=== PATIENT | female | born 1950 | race Caucasian/White ===

== ENCOUNTER 2019-03-05 11:57 | Day surgery (SDC) | payer OTHER ==
[2019-01-14 17:00] VITALS: BMI 27.8
[2019-03-05] MEDS ORDERED: PROPOFOL 20 ML ONE ×2 (13:02)
[2019-03-05] MEDS ORDERED: ceFAZolin SODIUM 1 GM VIAL ONE (13:09)
[2019-03-05] MEDS ORDERED: LIDOCAINE HCL/PF 2% SDV 5ML VIAL ONE (13:09)
[2019-03-05] MEDS ORDERED: SODIUM CHLORIDE 0.9% P/F 10 ML VIAL IJ ONE (13:09)
[2019-03-05] MEDS ORDERED: ceFAZolin SODIUM 1 GM VIAL IVPB ONE (13:11)
[2019-03-05] MEDS ORDERED: DEXTROSE 5%-0.45% SALINE 1,000 ML IV SCH (13:15)
[2019-03-05] MEDS ORDERED: ACETAMINOPHEN 1000 MG/100 ML VIAL (NON FORMULARY) IVPB ONE (13:15)
[2019-03-05] MEDS ORDERED: IBUPROFEN 800 MG/8 ML IJ IVPB ONE (13:15)
[2019-03-05] MEDS ORDERED: KETOROLAC TROMETHAMINE 30 MG/1 ML VIAL ONE (13:20)
[2019-03-05 14:50] VITALS: BP 138/76; PULSE 66; TEMP 98.1
--- NOTE | 2019-03-06 00:31 | OP ---
DATE OF OPERATION: 03/05/2019 PREOPERATIVE DIAGNOSIS: Right lower pole kidney stone. POSTOPERATIVE DIAGNOSIS: Right lower pole kidney stone. PROCEDURE: Right extracorporeal shockwave lithotripsy. SURGEON: Raheem Laguna MD ANESTHESIOLOGIST: Kayley Herrera MD ANESTHESIA: General. FINDINGS: A 7-mm stone in the lower pole of the right kidney. PREOPERATIVE INDICATIONS: Patient is a 68-year-old female with a 7-mm stone in the lower kidney. DESCRIPTION OF PROCEDURE: The patient was brought to the OR, placed on the table in the supine position. Given general anesthesia. The stone was visualized on ultrasound and fluoroscopy. Then, 2500 shocks were applied to the stone. Patient tolerated the procedure well. She was woken up. RAHEEM LAGUNA M.D. [id number]
== END 2019-03-05 14:40 | disposition home or self-care (01) ==
LOC: JASU-SURG 11:57
PROVIDERS: ATTEND Urology
PROC: 0TF3XZZ Fragmentation in Right Kidney Pelvis, External Approach (ICD-10-PCS; principal; 2019-03-05 13:00)
DX: N20.0 Calculus of kidney (principal)

== ENCOUNTER 2020-08-24 13:28 | Emergency (ER) | payer BC, OTHER ==
[2020-08-24 13:39] VITALS: BP 127/69; PULSE 87; TEMP 98.6; BMI 28.3
[2020-08-24] MEDS ORDERED: DIPHTH,PERTUSS(ACELL),TET 0.5 ML DISP.SYRIN IM ONE ×2 (14:21→14:42)
== END 2020-08-24 16:59 | disposition home or self-care (01) ==
LOC: JERFT 13:28
PROC: 3E0234Z Introduction of Serum, Toxoid and Vaccine into Muscle, Percutaneous Approach (ICD-10-PCS; principal; 2020-08-24)
DX: G44.319 Acute post-traumatic headache, not intractable (principal)
CPT/HCPCS: 70450-TC; 72125-TC; 90715; 99284-25

== ENCOUNTER 2022-01-26 04:33 | Day surgery (SDC) | payer BC ==
[2022-01-24 10:01] VITALS: BMI 26.9
[2022-01-26 08:31] VITALS: TEMP 97.9
[2022-01-26 09:24] VITALS: BP 120/53; PULSE 60
== END 2022-01-26 09:25 | disposition home or self-care (01) ==
LOC: JASU-ENDO 04:33
PROVIDERS: ATTEND Internal Medicine Gastroenterology
PROC: 0DBK8ZX Excision of Ascending Colon, Via Natural or Artificial Opening Endoscopic, Diagnostic (ICD-10-PCS; principal; 2022-01-26 08:00)
DX: Z12.11 Encounter for screening for malignant neoplasm of colon (principal); D12.2 Benign neoplasm of ascending colon; K57.30 Diverticulosis of large intestine without perforation or abscess without bleeding; Z86.010 Personal history of colon polyps; I10 Essential (primary) hypertension; E11.9 Type 2 diabetes mellitus without complications; Z83.71 Family history of colonic polyps
CPT/HCPCS: 82962; 88305-TC

== ENCOUNTER 2022-02-16 19:20 | Emergency (ER) | payer BC ==
[2022-02-16 19:30] VITALS: BMI 26.6
[2022-02-16 21:35] LABS: EOS % 0.9 % (0-4.5); HEMATOCRIT 37.8 % (32.4-45.2); HEMOGLOBIN 12.3 GM/dL (10.7-15.3); LYMPH % 20.9 % (8-40); MCH 30.3 pg (25.7-33.7); MCHC 32.6 g/dl (32.0-36.0); MEAN CELL VOLUME 93.1 fl (80-96); MEAN PLT VOLUME 7.3 fl (7.5-11.1); MONO % 9.8 % (3.8-10.2); NEUT % 67.4 % (42.8-82.8); PLATELET COUNT 300 10^3/uL (134-434); RBC 4.06 M/mm3 (3.60-5.2); RDW 15.2 % (11.6-15.6); WHITE BLOOD COUNT 8.6 K/mm3 (4.0-10.0)
[2022-02-16 21:41] LABS: INR 0.94 (0.83-1.09); PROTHROMBIN TIME (PATIENT) 10.8 SEC (9.7-13.0)
[2022-02-16 21:54] LABS: CHLORIDE 110 mmol/L (98-107); SODIUM 143 mmol/L (136-145)
[2022-02-16 21:55] LABS: CALCIUM 8.5 mg/dL (8.5-10.1)
[2022-02-16 21:56] LABS: ALBUMIN 3.2 g/dl (3.4-5.0); ANION GAP 4 MMOL/L (8-16); BLOOD UREA NITROGEN 29.4 mg/dL (7-18); CO2 29 mmol/L (21-32); GLUCOSE,RANDOM 81 mg/dL (74-106)
[2022-02-16 21:59] LABS: CREATININE 0.8 mg/dL (0.55-1.3); SGOT/AST 12 U/L (15-37); SGPT/ALT 21 U/L (13-61)
[2022-02-16 22:01] LABS: BILIRUBIN,TOTAL 0.3 mg/dL (0.2-1); TOT PROT 6.5 g/dl (6.4-8.2)
[2022-02-16 22:02] LABS: ALK PHOS 47 U/L (45-117)
[2022-02-16] MEDS ORDERED: SODIUM CHLORIDE 0.9% 1000 ML INFUS.BAG IV ONE (22:19)
[2022-02-17 01:49] VITALS: BP 152/76; PULSE 65; TEMP 97.4
== END 2022-02-17 02:55 | disposition home or self-care (01) ==
LOC: JER 19:20
DX: R07.9 Chest pain, unspecified (principal); R60.0 Localized edema; S22.068A Other fracture of T7-T8 thoracic vertebra, initial encounter for closed fracture; Y99.9 Unspecified external cause status
CPT/HCPCS: 36415; 71046-TC-FY; 71275-TC; 80053; 84484; 85025; 85379; 85610; 85730; 93005; 93010; 93971-TC; 99285-25; Q9967

== ENCOUNTER 2023-11-08 15:26 | Emergency (ER) | payer BC ==
[2023-11-08 15:56] VITALS: BP 126/51; PULSE 57; RESP 18; TEMP 97.5; BMI 21.9
== END 2023-11-08 18:42 | disposition home or self-care (01) ==
LOC: JER 15:26
DX: Z11.1 Encounter for screening for respiratory tuberculosis (principal); G89.29 Other chronic pain; R60.0 Localized edema; M79.673 Pain in unspecified foot
CPT/HCPCS: 71046-TC-FY; 99283-25

== ENCOUNTER 2023-12-13 19:32 | Emergency (ER) | payer BC ==
[2023-12-13 20:00] VITALS: BP 129/59; PULSE 71; RESP 20; TEMP 98.2; BMI 18.8
[2023-12-13] MEDS: ACETAMINOPHEN 325 MG TABLET (FP) PO ONE (23:05)
[2023-12-13] MEDS ORDERED: ACETAMINOPHEN 325 MG TABLET (FP) ONE (23:07)
[2023-12-13] MEDS: AMOX TR/POT CLAV 875MG/125MG TABLETS (FP) PO ONE (23:53)
[2023-12-13] MEDS ORDERED: AMOX TR/POT CLAV 875MG/125MG TABLETS (FP) ONE (23:54)
== END 2023-12-14 00:10 | disposition home or self-care (01) ==
LOC: JER 19:32
DX: M79.641 Pain in right hand (principal); M79.89 Other specified soft tissue disorders; L53.9 Erythematous condition, unspecified
CPT/HCPCS: 73130-TC-RT-FY; 99283-25